=== PATIENT | female | born 1995 ===

== ENCOUNTER 2024-09-19 18:29 | Emergency (ER) | payer SELFPAY ==
[2024-09-19 18:45] VITALS: BP 136/80; PULSE 75; RESP 17; TEMP 36.6; O2SAT 100
--- NOTE | 2024-09-19 21:38 | PC.NURSE ---
attempted to call pt at 2119, 2nd call 2129, and again at 2136 with no answer. pt did not notify physician office specialist of leaving ED.
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
== END 2024-09-19 21:37 | disposition left against medical advice (07) ==
DX: M25.512 Pain in left shoulder (principal)
CPT/HCPCS: 99199